=== PATIENT | male | born 1955 | race Caucasian/White ===

== ENCOUNTER → 2024-08-17 08:34 | Outpatient (CLI) | payer MEDICARE, OTHER, SELFPAY ==
[2024-08-17 09:19] LABS: Add Manual Diff / Slide Review NO; Basophils Absolute Auto 0 /uL (0-100); Basophils Percent Auto 0.3 % (0-2); Eosinophils Absolute Auto 0 /uL (0-450); Eosinophils Percent Auto 1.1 % (2-4); Hematocrit 43.5 % (41-53); Hemoglobin 15.6 g/dL (13.5-17.5); Lymphocytes Absolute Auto 1600 /uL (1100-4500); Lymphocytes Percent Auto 40.1 % (25-40); Mean Corpuscular HGB Conc 35.8 % (30-36); Mean Corpuscular Volume 94.9 fL (80-100); Monocytes Absolute Auto 400 /uL (0-900); Monocytes Percent Auto 9.3 % (3-14); Neutrophils Absolute Auto 2000 /uL (1500-7000); Neutrophils Percent Auto 49.2 % (50-75); Platelet Count 140 X10^3/uL (150-400); Red Blood Cell Count 4.59 X10^6/uL (4.5-5.9); Red Cell Distribution Width 12.7 % (11.6-14.8); White Blood Cell Count 4.1 X10^3/uL (4.5-11.0)
[2024-08-17 09:34] LABS: Albumin 4.2 g/dL (3.5-5.0); BUN Creatinine Ratio 38.7 (6-22); Blood Urea Nitrogen 24 mg/dL (9-20); Calcium 9.3 mg/dL (8.4-10.2); Carbon Dioxide 24 mmol/L (22-32); Chloride 108 mmol/L (98-107); Estimated Glomerular Filt Rate > 60 mL/min (>60); Glucose 99 mg/dL (70-99); HEMOLYSIS < 15 (0-50); Potassium 4.5 mmol/L (3.4-5.1); Sodium 140 mmol/L (137-145)
[2024-08-17 09:52] LABS: Vitamin D 25 Hydroxy (D3) 32.7 ng/mL (30.0-100.0)
== END ==
PROVIDERS: PCP Family Medicine; Referring Provider Orthopaedic Surgery Adult Reconstructive Orthopaedic Surgery; Visit Provider Orthopaedic Surgery Adult Reconstructive Orthopaedic Surgery
DX: Z01.818 Encounter for other preprocedural examination (principal); E11.9 Type 2 diabetes mellitus without complications; E55.9 Vitamin D deficiency, unspecified
CPT/HCPCS: 36415; 80048; 82040; 82306; 83036; 84134; 85025

== ENCOUNTER → 2024-11-19 13:12 | Outpatient (CLI) | payer MEDICARE, OTHER, SELFPAY ==
[2024-10-24 10:01] VITALS: BMI 24.0
[2024-11-19 13:52] LABS: Add Manual Diff / Slide Review NO; Hematocrit 43.9 % (41-53); Hemoglobin 15.5 g/dL (13.5-17.5); Lymphocytes Absolute Auto 1900 /uL (1100-4500); Mean Corpuscular HGB Conc 35.3 % (30-36); Mean Corpuscular Hemoglobin 33.0 PG (26-34); Mean Corpuscular Volume 93.3 fL (80-100); Platelet Count 171 X10^3/uL (150-400)
[2024-11-19 13:57] LABS: Hemoglobin A1C% w Est Avg Glu 5.0 % (4.0-6.0)
[2024-11-19 14:13] LABS: Albumin 4.8 g/dL (3.5-5.0); Blood Urea Nitrogen 17 mg/dL (9-20); Calcium 9.8 mg/dL (8.4-10.2); Carbon Dioxide 25 mmol/L (22-32); Chloride 105 mmol/L (98-107); Estimated Glomerular Filt Rate > 60 mL/min (>60); Glucose 81 mg/dL (70-99); HEMOLYSIS < 15 (0-50); Potassium 4.7 mmol/L (3.4-5.1); Sodium 139 mmol/L (137-145)
[2024-11-19 14:21] LABS: Prealbumin 38.2 mg/dL (17.6-36.0)
[2024-11-19 14:24] LABS: Vitamin D 25 Hydroxy (D3) 48.2 ng/mL (30.0-100.0)
== END ==
PROVIDERS: PCP Family Medicine; Referring Provider Family Medicine; Visit Provider Orthopaedic Surgery Adult Reconstructive Orthopaedic Surgery
DX: R73.09 Other abnormal glucose (principal); E55.9 Vitamin D deficiency, unspecified; M25.562 Pain in left knee; M17.12 Unilateral primary osteoarthritis, left knee; Z96.651 Presence of right artificial knee joint
CPT/HCPCS: 36415; 80048; 82040; 82306; 83036; 84134; 85025; 99214

== ENCOUNTER 2025-02-10 08:43 | Day surgery (SDC) | payer MEDICARE, OTHER, SELFPAY ==
[2024-10-24 10:01] VITALS: BMI 24.0
[2025-02-04 14:10] VITALS: BMI 23.8
[2025-02-10] VITALS (7 sets, daily range): BP systolic 136–148; BP diastolic 66–91; PULSE 74–102; RESP 12–21; TEMP 35.6–36.9; O2SAT 95–100; BMI 24.0
--- NOTE | 2025-02-10 06:00 | DI.RAD.S_ITS ---
PROCEDURE: XR KNEE LT 1TO2V INDICATIONS: TKA TECHNIQUE: 2 view(s) of the knee acquired. COMPARISON: [facility], CR, XR KNEE RT 1TO2V, 10/11/2024, 13:41. FINDINGS: Bones: Patient is status post knee joint arthroplasty. Hardware components are in expected positions. Visualized bony structures are intact. Soft tissues: Overlying postoperative changes are noted. IMPRESSION: Expected post-operative appearance of a knee arthroplasty. Approved by: Nancy Hedrick M.D.,Ph.D. on 02/10/2025 at 16:00
--- NOTE | 2025-02-10 09:09 | EKG_ITS ---
[address] [address] Test Date: 2025-02-10 Pat Name: Parviz Robertson III Department: Room: Gender: Male Manufacturing Quality Inspector: Francesca SKY : 1955 Requested By: Order Number: [id number] Reading MD: Zacarias Richey MD Measurements Intervals [place] Rate: 68 P: 52 IN: 182 QRS: 58 QRSD: 96 T: 34 QT: 420 QTc: 446 Interpretive Statements Normal sinus rhythm Electronically Signed On 02-11-2025 7:40:34 PST by Zacarias Richey MD
[2025-02-10] MEDS: LACTATED RINGERS 1,000 ML 42 ML IV ×2 (09:25→13:41)
[2025-02-10] MEDS: MELOXICAM 7.5 MG TABLET 15 MG PO (09:26)
[2025-02-10] MEDS: ACETAMINOPHEN 325 MG TABLET 975 MG PO (09:27)
--- NOTE | 2025-02-10 09:59 | PM.PREOP ---
Pre-operative Note Interval Note History & Physical reviewed/Exam performed by Physician: Yes Changes to H&P: No
--- NOTE | 2025-02-10 10:48 | SUR.OPER ---
Supine on padded OR bed. Pillow under head, arms secured on padded armboards <90 degree abduction. Safety belt across torso. Non-operative leg secured with tape over blanket over lower leg. Operative leg secured in DeMayo/Moo/Nathe positioner. Foam padded brace at thigh of operative leg.
[2025-02-10] MEDS: TRANEXAMIC ACID 1,000 MG in SODIUM CHLORIDE 0.9% 100 ML 200 MG IV ×2 (12:15→13:43)
[2025-02-10] MEDS: KETOROLAC 30 MG/ML VIAL 15 MG INJ (12:44)
--- NOTE | 2025-02-10 13:37 | SUR.OPER ---
IRRIGATION: NORMAL SALINE, POVIDONE IODINE, HYDROGEN PEROXIDE
[2025-02-10] MEDS: LACTATED RINGERS 1,000 ML 100 ML IV (14:00)
--- NOTE | 2025-02-10 14:02 | P.OP_ITS ---
Operative Date/Time/Diagnoses Date of procedure: 02/10/25 Time of procedure: 12:30 Pre-op diagnosis: Left knee osteoarthritis Post-op diagnosis: same Procedure & Clinicians Procedure: Left total knee arthroplasty Same procedure(s) as scheduled: Yes Surgeon: Artis Webber Assisted?: Yes Automobile Detailer: Mandy Lomas Anesthesia Type: Spinal, Sedation, Peripheral nerve block and Local Operative Notes Findings: Severe arthritis Closure Type: primary Applied: implant(s) Estimated Blood Loss (mL): 50 Tourniquet time (min): 48 Procedure in detail: Left Gap-Balanced Fran Persona Medial-Congruent Primary Total Knee Arthroplasty Implants: * Size 11 Cruciate Retaining Femoral Component * Size E Tibial Component * Size 10 Medial Congruent Polyethylene Insert * Unresurfaced Patella Procedure Summary: This 69-year-old male patient had previously undergone a contralateral total knee arthroplasty with me earlier this year. Review of his long leg standing radiograph indicated that with a 5 degree cut on his distal femur and a varus cut on his proximal tibia his standing joint line and hip knee angle had been recreated so the same angles were used for today's procedure. Analysis of the distal femoral resection indicated that with a 5 degree cut both the medial and lateral side had an equal resection and the extension gap balanced without the need for soft tissue releases. Bone quality was excellent Procedure in Detail: This patient was seen preoperatively and evaluated for knee pain which was refractory to numerous nonoperative treatment modalities. Their pain correlated with radiographic changes demonstrating significant degeneration in the knee joint. The risks and benefits of continued nonoperative management versus operative management were discussed at length and all of the patient?s questions were answered. Additional educational materials providing further details beyond our discussion in clinic were provided via a publicly available patient education video which included the incidence of medical complications associated with total knee arthroplasty, reasons for revision following total knee arthroplasty, and patient satisfaction rates following total knee arthroplasty. With this understanding of the risks inherent to the procedure, the patient elected to move forward with operative management. Following preoperative optimization, the patient was scheduled for surgery. The patient was met in the preoperative holding area the day of the procedure and all questions were answered. The patient?s nares were swabbed in order to decolonize them from MRSA. Informed consent was signed and the left limb was marked with indelible ink.? The patient was brought back to the operating room where anesthesia was induced. The patient was transferred to the operating table and all bony prominences were padded. The operative site was prepped and draped in the usual sterile fashion. A second prep stick was utilized following drape placement. The incision was marked corresponding to the medial aspect of the tibial tubercle and the patella. Ioban was wrapped circumferentially around the knee. Prior to incision, tranexamic acid and cefazolin were administered. Templating images were displayed. A timeout procedure was performed verifying the patient?s identity, medical comorbidities, allergies, relevant medications, anesthesia type and the surgical plan. All present were in agreement. The assistance of a physician surgeon's assistant was required for positioning, room setup, soft tissue retraction and wound closure. Without this assistance, the procedure would have been significantly more challenging and time consuming.?? The tourniquet was inflated prior to incision. I made an anterior incision over the knee, dissected through the subcutaneous tissues and identified the lateral border of the VMO. Medial and lateral soft tissue flaps were developed. A mid- vastus arthrotomy was performed ensuring that adequate capsular tissue would remain for closure at the conclusion of the procedure. The knee was brought into extension and the medial soft tissues were released off the joint line of the tibia. Tissue overlying the distal anterior femur was released to allow for later assessment for anterior notching but left in place. A portion of the retropatellar fat pad was excised while protecting the patellar tendon. The patella was everted. The patella was not resurfaced. Osteophytes were excised and a lateral facetectomy was performed. The patella was released from its everted position.?? I flexed the knee to 90 degrees and placed retractors to allow access to the notch. An opening reamer was used to gain access to the femoral canal and an intramedullary mehrdad was introduced into the canal. Diaphyseal fit was obtained in order to plan a distal femoral resection at 5 degrees relative to the anatomic axis. A +0 resection was planned and assessed using an miesha wing. I then made the cut using a sagittal saw. This provided additional access to the femoral notch. The ACL and PCL were excised. Retractors were placed on the lateral and medial tibia. I hyperflexed the knee while externally rotating it to sublux the tibia anteriorly. I placed a Brock retractor posteriorly and used this to provide additional anterior subluxation. The remainder of the PCL root was released. An extramedullary guide was positioned for a resection in varus. A +4 resection off the medial tibia was planned and the tibial cutting jig was pinned in place. I evaluated the depth, varus-valgus alignment and slope of the planned tibial resection prior to making the cut. I cut the tibia with a sagittal saw while using retractors to protect the MCL, patellar tendon, and posterolateral structures.? The knee was repositioned in extension and the Fuzion soft tissue balancing gauge was introduced. This demonstrated that there was equal tension in the medial and lateral compartments of the knee with the knee in full extension and no additional soft tissue releases were necessary. When 50 pounds of force was applied to the Fuzion device, the extension gap opened to 10 mm. I moved the knee into 90 degrees of flexion, and the Fuzion device was recalibrated by removing a 9 mm juan j to allow assessment of the flexion gap. The Fuzion block was placed perpendicular to the resected surface of the tibia and the resected surface of the distal femur. Fifty pounds of traction was applied to match the tension of the extension gap. This externally rotated the femur to 3 degrees. Pins were placed in the 10 mm holes. Appropriate sizing was determined and a 4-in-1 block was placed. This was double checked using the Fuzion device to ensure that it would open to an equal distance as the extension gap when the same amount of force was applied. The Fuzion block was also used to assess flexion gap symmetry. An miesha wing was used to ensure there would be no anterior notching. Retractors were placed to protect the soft tissues during resection. Captured cuts were performed with a sagittal saw for the anterior and posterior femur as well as the corresponding chamfers.?A laminar senior administrative support and retractors were used to expose the posterior knee and the menisci and posterior osteophytes were removed. Trial components were placed and the construct was assessed. Range of motion was assessed by ensuring the knee could achieve full extension and assessing maximum passive knee flexion by elevating the femur and allowing the heel to passively fall towards the buttock. Gap symmetry was assessed by stressing the medial and lateral compartments in both extension and flexion. Laxity was assessed in both extension and flexion and the polyethylene trial was adjusted with shims as necessary. Patellar tracking was assessed with knee flexion. Once satisfied with the construct, I moved forward with implant insertion. Lug holes were drilled in the femur and the tibia was prepped ensuring appropriate sizing and rotation relative to the tibial tubercle.?? The bony ends were irrigated. A portion of the anterior chamfer cut was utilized as a to plug the hole from the intramedullary mehdrad in the femur. I impacted the tibial component into place. The tibia was reduced underneath the femur. I placed the femoral component. I brought the knee into extension and manually pressurized the construct by pushing on the heel. The knee was bathed in a dilute mixture of betadine and peroxide. A mixture of Ropivacaine, Epinephrine and Toradol was infiltrated throughout the soft tissues into structures including the VMO, patellar tendon, quadriceps tendon, MCL and femoral perioste um. The knee was copiously irrigated with pulse lavage. The knee was again trialed. Range of motion was assessed by ensuring the knee could achieve full extension and assessing maximum passive knee flexion by elevating the femur and allowing the heel to passively fall towards the buttock. Gap symmetry was assessed by stressing the medial and lateral compartments in both extension and flexion. Laxity was assessed in both extension and flexion and the polyethylene trial was adjusted with shims as necessary. Patellar tracking was assessed with knee flexion. The tourniquet was let down and the polyethylene trial was removed. I inspected the knee inspected for any residual bleeding. Once hemostasis was achieved I inserted the final polyethylene and ensured appropriate engagement of the dovetail locking mechanism.?? The arthrotomy was closed with non-absorbable interrupted suture ensuring that this extended to the top of the arthrotomy. This was backed up with running barbed suture throughout the arthrotomy. The skin was closed with 2-0 and 3-0 sutures. Surgical glue was applied and a soft dressing was placed.?The sponge, instrument and needle counts were reported as being correct at the end of the case. The patient was transferred from the operating table back to a stretcher. The patient emerged from anesthesia without difficulty and was taken to the PACU in a stable condition.? Plan for aftercare: * Weightbearing as tolerated * Aspirin 81 twice per day for DVT prophylaxis * Multimodal pain regimen with no IV opioids ordered * Anticipate discharge home tomorrow. Patient has an 11:00 a.m. [place] that we will try to aid him in catching * Follow up at [facility] in 2 weeks for wound check Complications: none Post-operative Condition: stable Disposition: observation
[2025-02-10] MEDS: ACETAMINOPHEN 325 MG TABLET 650 MG PO ×2 (17:14→20:58)
--- NOTE | 2025-02-10 18:57 | PT.IIE ---
Current Diagnoses Unilateral primary osteoarthritis, left knee (02/10/25) Surgery Performed Operation Date: 02/10/25 11:15 Actual Procedures p Total Knee Arthroplasty(Left) - Artis Webber MD Surgical History (Last Updated 02/04/25 @ 14:12 by Afua Ayala RN) History of appendectomy Hx of cholecystectomy Hx of hernia repair Status post total knee replacement, right (10/11/24) Medical History (Last Updated 11/19/24 @ 14:15 by Artis Webber MD) HLD (hyperlipidemia) HTN (hypertension) PAF (paroxysmal atrial fibrillation) Palpitations Pancreatitis Primary osteoarthritis of both knees Primary osteoarthritis of left knee Sciatica Physical Therapy Inpatient Evaluation/Re-Eval M1 PT IP Prior Functional Status Start: 02/10/25 18:46 Freq: Status: Active Protocol: Document 02/10/25 18:46 NW (Rec: 02/10/25 18:57 NW [id number]) Medical Review Prior Functional Status Communication I Mobility and Gait I with occasional use of walking sticks/SPC secondary to R TKA in September. Activities of Daily I Living and IADL's Social History Household Members spouse Living Arrangements House Number of Floors ( Two Floors Floors) Number of Stairs To 2 steps to enter, plans to live on first floor with Enter/Railing? make shift bedroom and 1/2 bath. Has 16 steps to reach full bath upstairs. Pt had R TKA in September and did the same for a month. Home Environment Standard Height Toilet,Walk in Shower Home Equipment Front Wheel Walker,Straight Cane,Raised Toilet Seat Without Armrests,Grab Bars In Shower Employment Status Retired Additional Social Has additional family on the [place] to assist as needed History Comment . M2 PT-IP Current Condition Start: 02/10/25 18:46 Freq: Status: Active Protocol: Document 02/10/25 18:46 NW (Rec: 02/10/25 18:57 NW [id number]) Physical Therapy Current Condition Current Condition Evaluation Date 02/10/25 Treatment Diagnosis L TKA Onset Date 02/10/25 M3 PT-IP Subjective Start: 02/10/25 18:46 Freq: Status: Active Protocol: Document 02/10/25 18:46 NW (Rec: 02/10/25 18:57 NW [id number]) Subjective Physical Therapy Visit Type Type Initial Evaluation Visit Start Time 18:10 Visit Stop Time 18:35 Number of MERCHANDISE HANDLER Visits 0 Physical Therapy Visit Comments Patient Comments Pt is found supine in bed after finishing dinner. Spouse is present upon entry. Patient Goals To go home early in the morning. M4 PT-IP Mobility and Gait Start: 02/10/25 18:46 Freq: Status: Active Protocol: Document 02/10/25 18:46 NW (Rec: 02/10/25 18:57 NW [id number]) PT-Bed Mobility Assessment Supine to Sit Supine to Sit Independent Sit to Supine Sit to Supine Independent Scooting Scooting to Edge of Independent Bed PT-Transfer Assessment Sit to and From Stand Sit to and from Contact Guard Assistance,1 Person Assistance,Use of Stand Upper Extremities Equipment Transfer Assistive Gait Belt,Front Wheeled Walker Device Transfers Transfer Destination Bed,Wheelchair Transfer Technique Stand Step Pivot Transfer Ability Level of Assist Standby Assistance,1 Person Assistance,Use of Upper Extremities Comments Mobility Comments Pt self selects decrease WBing through LLE and utilizes UE to assist with transfer. Good carryover from previous R TKA in September on AD management and UE placement. Gait Assessment Gait Gait Assistance Standby Assistance Required: Distance (Feet) 50 Able to Maintain Yes Weight Bearing Status During Gait Assistive Devices Assistive Device Gait Belt,Front Wheeled Walker Gait Deviations General Gait Pattern Antalgic,Decreased Stride Length,Step-to Gait Factors Limiting Gait Function Factors Limiting Pain Gait Function Comments Gait Comments Cues occasionally to keep FWW on the ground. Performs over two irregular bouts with a step to gait pattern with good use of UE to decrease load through LLE secondary to pain. Adequate velocity with step to gait pattern. Stair Climbing Assessment Evaluation Level of Assist On Contact Guard Assistance,1 Person Assistance Stairs Devices Stair Climbing Left Railing Assistive Devices Technique/Endurance Stair Climbing Ascend and Descend Direction Stair Climbing Step Over Step Technique Number of Steps 3 Climbed Query Text: Stair Climbing Set # 1 Repetitions (reps) Comments Stair Climbing Pt is able to perform with unilateral railing for UE Comments support as pt does not have railings at home, but has a wall to utilize for stability. Good eccentric control and power production. PT-Balance Assessment Sitting Balance and Reactions Static Sitting Normal Balance Ability Dynamic Sitting Good Balance Ability Standing Balance and Reactions Static Standing Good Balance Ability Dynamic Standing Fair Balance Ability Device Used FWW M5 PT-IP Objective Assessments Start: 02/10/25 18:46 Freq: Status: Active Protocol: Document 02/10/25 18:46 NW (Rec: 02/10/25 18:57 NW [id number]) Orientation Orientation/Cognition Level of Alertness Alert Orientation Name,Age,Birthday,Month,Date,Year,Day of Week,Place, Situation Safety Awareness Understands Safety Issues Memory Description No Deficits Noted Gross Range of Motion Upper Extremity ROM Assessment Within Functional Limits Lower Extremity ROM Assessment Left Impaired Impairments secondary post op Strength Upper Extremity Strength Assessment Within Functional Limits Lower Extremity Strength Assessment Left Impaired Hip DNT Knee DNT Coordination Assessment Gross Coordination Gross Coordination WNL Sensation Assessment Sensation Gross Sensation WNL M6 PT-IP Treatment Start: 02/10/25 18:46 Freq: Status: Active Protocol: Document 02/10/25 18:46 NW (Rec: 02/10/25 18:57 NW [id number]) Physical Therapy Treatment Exercises Exercises Ankle Pumps,Gluteal Sets,Quad Sets,Heel Slides,Straight Leg Raises,Short Arc Quads,Passive Knee Extension Hang Education Education Provided Precautions,Weight Bearing Status,Post-Op Packet,Safety Other Treatments Other Treatment AD management and stair navigation. Performed M7 PT-IP Assessment and Plan Start: 02/10/25 18:46 Freq: Status: Active Protocol: Document 02/10/25 18:46 NW (Rec: 02/10/25 18:57 NW [id number]) PT Summary Assessment and Plan Potential Rehabilitation Excellent Potential Status of Condition Stable at Evaluation Summary Impairments Pain,ROM,Strength,Balance,Transfers,Gait,Activity Tolerance Progress Towards Progressing Toward Goals Goals Goals Transfer Goal Independent Gait Goal Standby Assistance Gait Distance 100 Other Goals Pt will navigate 2 steps with reduced UE support to mimic getting in and out of the home with no railing support (has a wall on L). Days to Meet Goals 1 Frequency of Treatment Frequency Of Once a Day Treatment Treatment Plan Physical Therapy Transfer Training,Gait Training,Therapeutic Exercise, Treatment Plan Balance Retraining,Post Op Education,Discharge Planning ,Neuromuscular Re-ed Other Progress stairs and ambulation distance Recommendations and Next Treatment Focus Weight Bearing Status Weight Bearing Weight Bear as Tolerated Status Recommendations To Nursing Amount of Assist 1 Person Assist Needed Discharge Recommendations PT Discharge Home with Assistance,Outpatient PT Recommendations Transportation Needs Private Vehicle at Discharge - PT assist 1
[2025-02-10] MEDS: TAMSULOSIN 0.4 MG CAPSULE PO (20:57)
[2025-02-10] MEDS: SENNOSIDES 8.6 MG TABLET 17.2 MG PO (20:58)
[2025-02-10] MEDS: DOCUSATE 100 MG CAPSULE PO (20:58)
[2025-02-11] MEDS: ACETAMINOPHEN 325 MG TABLET 650 MG PO ×2 (02:36→09:45)
[2025-02-11 06:56] VITALS: BP 137/74; PULSE 93; RESP 18; TEMP 36.4; O2SAT 95
--- NOTE | 2025-02-11 07:09 | P.DS_ITS ---
History of Present Illness History of Present Illness Date Patient Seen: 02/11/25 Chief complaint: Left Total Knee Arthroplasty Narrative: Attending: Dr. Artis Webber Orthopedic Procedures: ?Left Total Knee Arthroplasty 69 year old male with a past medical history of hypertension and paroxysmal atrial fibrillation presented to [facility] on 02/10/2025 for planned left total knee arthroplasty by Dr. Webber. This elective procedure was indicated by chronic left knee arthritis that failed to improve sufficiently with conservative treatment. On the date of surgery there were no changes to the patient?s medical history, medications or allergies. Consent had been obtained and the patient agreed to proceed with planned surgery. Discharge Providers Provider Discharge Date: 02/11/25 Primary care physician: Luis Wall MD Consults: 02/10/25 15:37 Consult to Physical Therapy Evaluate & Treat Comment: Physician Instructions: WBAT Discharge provider: YVONNE Rogers Dr Summary Hospital Course Hospital Course: On 02/10/2025 the patient was brought to the operating room for planned left total knee arthroplasty by Dr Webber. There were no known intraoperative complications. The patient was transferred to the postoperative recovery area and monitored appropriately. Later the patient was transferred to the acute care unit [facility] for monitoring overnight and physical therapy. There were no acute events overnight. On postoperative day one, the patient's vital signs were stable, and they were making urine spontaneously after 0.4 mg of tamsulosin given his history of urinary retention post operatively. The patient was seen by physical therapy on post operative day 0 and tolerated rehabilitation without concern. PT recommended discharge home with assistance and out patient physical therapy. Pain was well-controlled on oral analgesics including acetaminophen and oxycodone. The patient denied any numbness or tingling in the operative leg. The patient agreed with preoperative plan to discharge home on postoperative day one. They have no acute concerns or questions. Vital signs were repeated during my evaluation with heart rate 93 and oxygen saturation 95% on room air. Respiratory rate 18. Blood pressure 137/74. ROS today: no chest pain, dyspnea, fever, chills, nausea or emesis Exam Vital Signs (past 8 hours): - 02/11/25 06:56 Temperature 97.5 F L Pulse Rate 93 H Respiratory Rate 18 Blood Pressure 137/74 Pulse Oximetry 95 Oxygen Flow Rate 0 Oxygen Delivery Method Room Air Oxygen Flow Rate 0 Narrative Exam Narrative: Physical Exam: Well developed, well-nourished 69 year old male, resting comfortably Normal respiratory effort on room air without accessory muscle use Dressing is clean, dry and intact to the left knee without drainage. No hematoma.? 0.25 cm spot of sanguinous drainage about mid portion of the aquacel dressing. Stevie wrap and webril in place to left knee. Flexion and extension of the first hallux and ankle in tact. Knee extension intact. Calves are soft and non-tender to operative extremity, SCDs in place Palpable dorsalis pedis pulse. 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 Webber at [facility] on 02/10/2025. The patient is recovering well with appropriate pain control on oral analgesics and stable vital signs. The patient is comfortable with planned discharge home today on post operative day one. Plan: - Weight bearing as tolerated to operative extremity with front wheeled walker - Antibiotics: 2 postoperative doses of Ancef - DVT prophylaxis: 81 mg of aspirin by mouth twice daily - Pain control: multimodal analgesia with acetaminophen, ibuprofen, tramadol and oxycodone. Minimize use of opioid medication. Ice to surgical site. - Bowel regimen: docusate sodium twice daily for constipation - Physical therapy evaluation today prior to discharge - Follow up: 2 week follow up at [facility] - Discharge medications: none. Post operative medications were prescribed prior to surgery.? His medications were sent to mail order pharmacy.? A 2 day prescription for tramadol was sent to [place] pharmacy on the day of surgery. - Disposition: home today All patient questions were answered, and they verbalized agreement with the above plan. Call [facility] or transformation analyst provider with any questions or concerns. Discharge Plan Discharge Plan Patient Disposition: Home Provider Discharge Comment: SURGICAL PROCEDURE: Left Total Knee Arthroplasty SURGEON: Dr. Webber at [facility] DATE: 02/10/25 ACTIVITY INSTRUCTIONS - You are weight bearing as tolerated to the left lower extremity with a front wheeled walker at all times. We encourage active movement of the toes and ankle every hour while awake to prevent stiffness. - Do not drive while taking narcotic medications and recovering from your surgery. - We want you to follow a quiet knee protocol for the first two weeks after surgery. This means: Do not stand for more than 20 minutes at a time Ambulate less than 1,000 steps per day Bend the knee as far as you can with your own muscles and straighten it all the way out by resting your heel on a flat surface and letting your knee hang down Avoid anyone pushing your knee to bend it or straighten it - After two weeks we will want you to get more aggressive in your work with physical therapy, but we need to let your body heal first DRESSING CARE - You have an aquacell dressing on top of your incision. This is a waterproof dressing and so you may shower with the dressing so long as the dressing remains clean and dry to the surgical site. Leave the dressing in place until your follow up in the orthopedic clinic. If the dressing becomes saturated or is disrupted call our office for further guidance. - Your dressing is covered with a soft cotton dressing and stevie wrap for compression. You may remove these dressings when you return home but should leave the waterproof dressing in place. POST-OPERATIVE INSTRUCTIONS - If you notice fever, chills, night sweats, redness, excessive drainage or bleeding, a sharp increase in pain that persists after taking pain medication, pain in your calf muscles, chest pain or trouble breathing please unwrap the dressing and investigate. Then call the office with findings for further guidance. If it is after regular clinic hours, please seek care in the emergency department. - In the rare case of any severe chest pain and trouble breathing, seek immediate care, do not delay for a call to the clinic. - Use ice to the affected extremity for 15-30 minutes increments as much as possible. Use your ice machine as discussed in your pre-operative visit. - Keep extremity elevated to the level of the heart to reduce swelling. You can use ice on top of the dressing to reduce pain and swelling of the extremity. - You should consume a low sodium diet after surgery to limit swelling. You can gradually resume your normal diet if you have no nausea or vomiting - Physical therapy should begin about 7-10 days after surgery. Your first evaluation should already be scheduled. Call our office if you cannot schedule your therapy in the expected time frame. - Your follow up is already scheduled for 2 weeks after your surgery at the Orthopedic clinic. - You should have no dental procedures for 6 months following your total joint replacement. - Please refer to Dr. Webber?s educational videos on [employer] for a reference on your post operative care. [email or web address] - Call [facility] at [phone] with any questions or concerns. Given the upcoming holidays please call the orthopedic office to be connected with the transformation analyst provider for any concerns or questions. Portal messages may not be monitored if the provider is off for the holiday. Thank you for your consideration. MEDICATIONS - Please refer to the ?Orthopedic Medication Instructions? sheet provided at your pre-operative visit. Written instructions are provided below as a reminder. - Take two pills of 500 mg Tylenol (acetaminophen) every 8 hours regardless of pain in a scheduled manner. Do not exceed 3000 mg of Tylenol (from ALL sources, including over the counter combination products) in a 24-hour period due to risk of liver injury. - Take one pill of oral meloxicam daily. This is NSAID (anti-inflammatory) medication to reduce swelling and pain. - Take one pill of 50 mg tramadol by mouth every 6 hours as needed for break through pain after taking your regular Tylenol and anti-inflammatory. - Oxycodone and Tramadol are opioids, which means they are similar to morphine, heroin or fentanyl. Our goal is for you to take as little of this as possible because the side effects from it can be very severe. If you are able to get through your recovery process taking 10 pills or less, please share your story with other patients by logging onto [email or web address] and sharing what strategies you used to avoid these dangerous medications. You can also read other patients? stories on that website to get strategies that go above and beyond what we have discussed to help you manage this pain while avoiding opioids. - Take 200 mg of Colace by mouth every 12 hours for constipation. Narcotic medications such as oxycodone and tramadol as well as anesthesia may increase your risk of constipation after surgery. - Take 4 mg of Zofran by mouth every 6 hours as needed for uncontrolled nausea or vomiting. If you have persistent nausea and vomiting call our office or seek care in the emergency department. - Take one pill of 81 mg of aspirin two times daily 12 hours apart for 6 weeks for blood clot prevention. Take this medication regardless of pain. - Take three pills of 650 mg tranexamic acid once daily for 3 days following surgery. This is to reduce bleeding and swelling in your knee. - Take a proton pump inhibitor such as Pantoprazole if you have a history of acid reflux or are noticing stomach irritation. NSAIDs and aspirin can both cause stomach irritation and that medication can help avoid stomach issues. - If you stopped taking a ?biologic? medication that you normally take for an issue such as rheumatoid arthritis or psoriasis prior to surgery, do not restart it until we have seen you back in clinic and confirmed that your wound is h ealed. - Resume all of your normal home medications tomorrow morning unless specified otherwise by your surgeon. Discharge orders & Medications Discharge Orders: Discharge (Order); Ordered 02/11/25 Ordered By: Mandy Lomas Prescriptions: New tramadol 50 mg tablet 50 mg PO Q6H PRN (Reason: pain) Qty: 10 0RF Continued cholecalciferol (vitamin D3) 50 mcg (2,000 unit) capsule 100 mcg PO DAILY Qty: 60 3RF Rx Instructions: Take 2 caps by mouth daily. ketoconazole 2 % cream 1 applic topical DAILY acetaminophen 325 mg Tablet 650 mg PO Q6H Qty: 90 0RF amlodipine 5 mg tablet 7.5 mg PO DAILY pantoprazole 40 mg tablet,delayed release (DR/EC) 40 mg PO DAILY Qty: 30 0RF meloxicam 15 mg tablet 15 mg PO DAILY PRN (Reason: Post op - pain) Qty: 30 1RF tramadol 50 mg tablet 50 mg PO Q6H PRN (Reason: pain) Qty: 25 0RF Follow up/Referrals: Luis Wall MD [Primary Care Provider, [facility]] Visit Report/Discharge Packet Instructions: DI for Knee Replacement, DI for Prescription Opioid Use Stand Alone Forms: Patient Portal/API, Surgery Discharge Print Language: [place] Discharge Data Primary Care Provider: Luis Wall Attending Provider: Artis Webber PROFEE Charge Codes Discharge inpatient/observation: [id number]
[2025-02-11 08:15] VITALS: BP 127/74; PULSE 85; RESP 18; TEMP 36.2; O2SAT 98
[2025-02-11] MEDS: DOCUSATE 100 MG CAPSULE PO (08:19)
[2025-02-11] MEDS: PANTOPRAZOLE DR 40 MG TABLET PO (08:19)
[2025-02-11] MEDS: MELOXICAM 7.5 MG TABLET 15 MG PO (08:25)
--- NOTE | 2025-02-11 08:32 | CM.DANOTE ---
DCP Assessment Note: Pt is a 69yo male, resident of [facility], is admitted s/p L TKA. Pt lives in a house with his , Melvi. Pt's Primary Care Provider is Dr. Luis Wall and insurance is Medicare. Reviewed chart and discussed with multidisciplinary team pt's medical status and initial discharge needs. Per Ortho team, pt medically cleared to discharge home today with outpatient follow up in their clinic. Per PT evaluation, pt cleared to dc home with spouse and outpatient PT. No dc needs identified in chart review to include Pre-Anesthesia assessment, Provider and Nurse notes. Plan: Anticipating discharge home with spouse to transport, discharge orders are placed. CM team will follow closely for coordination of discharge plans. PRICILLA Russell Discharge Planning/Care Management CM Discharge Assessment Start: 02/10/25 14:22 Freq: Status: Active Protocol: Document 02/11/25 08:30 MW (Rec: 02/11/25 08:32 MW [id number]) Discharge Planning Assessment Assigned Discharge JEFFERSON Guillen Guard Sergeant Provider Dr. Luis Wall Insurance Medicare DPOA/Assigned Melvi [place], Spouse Designee Name Contact Information [phone] Advance Directives? No History Provided By Patient,Medical Record Has Patient been No admitted in last 30 days? Prior Living House Arrangements Household Members spouse Type of Drives own vehicle transporation used prior to admit Independent with ADL Yes 's Is patient alert and Yes oriented? Patient/Family OP PT Therapy Preference Discharge Plan Home Transportation Spouse Arrangement Referrals Initiated None needed Review Status In Process Please Provide Date 02/11/25 Initial DC Assessment Was Performed Next Review Type Continued Stay Review
--- NOTE | 2025-02-11 09:32 | PT.IPTN ---
Current Diagnoses Unilateral primary osteoarthritis, left knee (02/10/25) Surgery Performed Operation Date: 02/10/25 11:15 Actual Procedures p Total Knee Arthroplasty(Left) - Artis Webber MD Physical Therapy Treatment Note M2 PT-IP Current Condition Start: 02/10/25 18:46 Freq: Status: Active Protocol: Document 02/11/25 09:12 SP (Rec: 02/11/25 09:54 lillie Bain) Physical Therapy Current Condition Current Condition Evaluation Date 02/10/25 Treatment Diagnosis L TKA Onset Date 02/10/25 M3 PT-IP Subjective Start: 02/10/25 18:46 Freq: Status: Active Protocol: Document 02/11/25 09:12 SP (Rec: 02/11/25 09:54 lillie Bain) Subjective Physical Therapy Visit Type Type Treatment Note Visit Start Time 09:12 Visit Stop Time 09:32 Notes 20 min Number of [employer] Visits 1 Physical Therapy Visit Comments Patient Comments Pt agreeable to working with [employer]. Patient Goals go home with to assist as needed, set up for outpatient in 2 weeks. Therapy Pain Assessment Pain When Pain Assessed During Mobility Pain Present Pain Present Pain Reported Location Right Knee Intensity 4 Scale Used Numeric (0 - 10) Description With Movement Pain Management Timing of Activity with Medications Techniques M4 PT-IP Mobility and Gait Start: 02/10/25 18:46 Freq: Status: Active Protocol: Document 02/11/25 09:12 SP (Rec: 02/11/25 09:54 lillie Bain) PT-Bed Mobility Assessment Supine to Sit Supine to Sit Independent Sit to Supine Sit to Supine Independent Scooting Scooting to Edge of Independent Bed PT-Transfer Assessment Sit to and From Stand Sit to and from Independent,Standby Assistance,Use of Upper Extremities Stand Equipment Transfer Assistive Gait Belt,Front Wheeled Walker Device Transfers Transfer Destination Bed Transfer Technique pt ambulated with FWW Transfer Ability Level of Assist Independent,Standby Assistance,Use of Upper Extremities Comments Mobility Comments [employer] instructed L knee post-op exercises: AP, glut and quad sets, heel slides AROM/AAROM with strap on foot allowed up to 90deg tolerated, approx 75 deg. bed mob I , sit EOB L knee flexion/ext AROM. STS and gait further distance into hallway progressed to stairs and back, completed 1 set 3 stairs with SPC/HR. Pt returned to room and reclined back into bed when completed. Had call light and all needs in reach. Gait Assessment Gait Gait Assistance Independent,Standby Assistance Required: Distance (Feet) 150 Able to Maintain Yes Weight Bearing Status During Gait Assistive Devices Assistive Device Gait Belt,Front Wheeled Walker Gait Deviations General Gait Pattern Antalgic,Decreased Stride Length,Step-to Gait Factors Limiting Gait Function Factors Limiting Limited Range of Motion,Pain Gait Function Comments Gait Comments Min to occasional cues for LLE heel toe, L knee flexion swing through and ankle ROM toe off mobility to normalize gait. Improved step to patterning into more reciprocal gait. GOod stability. Stair Climbing Assessment Evaluation Level of Assist On Standby Assistance Stairs Devices Stair Climbing Straight Cane,Left Railing Assistive Devices Technique/Endurance Stair Climbing Ascend and Descend Direction Stair Climbing Step Over Step Technique Number of Steps 3 Climbed Stair Climbing Set # 1 Repetitions (reps) Comments Stair Climbing Step to proper patterning lead RLE ascend, LLE descend; Comments assimilated lateral L rail (like wall home) and SPC in RUE, good stability. PT-Balance Assessment Sitting Balance and Reactions Static Sitting Normal Balance Ability Dynamic Sitting Normal Balance Ability Standing Balance and Reactions Static Standing Good Balance Ability Dynamic Standing Good Balance Ability Device Used FWW M5 PT-IP Objective Assessments Start: 02/10/25 18:46 Freq: Status: Active Protocol: Document 02/10/25 18:46 NW (Rec: 02/10/25 18:57 NW [id number]) Orientation Orientation/Cognition Level of Alertness Alert Orientation Name,Age,Birthday,Month,Date,Year,Day of Week,Place, Situation Safety Awareness Understands Safety Issues Memory Description No Deficits Noted Gross Range of Motion Upper Extremity ROM Assessment Within Functional Limits Lower Extremity ROM Assessment Left Impaired Impairments secondary post op Strength Upper Extremity Strength Assessment Within Functional Limits Lower Extremity Strength Assessment Left Impaired Hip DNT Knee DNT Coordination Assessment Gross Coordination Gross Coordination WNL Sensation Assessment Sensation Gross Sensation WNL M6 PT-IP Treatment Start: 02/10/25 18:46 Freq: Status: Active Protocol: Document 02/11/25 09:12 SP (Rec: 02/11/25 09:54 SP lillie girard) Physical Therapy Treatment Exercises Exercises Ankle Pumps,Gluteal Sets,Quad Sets,Heel Slides,Seated Knee Flexion/Extension Other Treatments Other Treatment Also instructed standing heel raises x5 reps with FWW Performed support. Reviewed complete HEP 3x/day and walk every hour for safety support circulation, ROM and mobility strength. M7 PT-IP Assessment and Plan Start: 02/10/25 18:46 Freq: Status: Active Protocol: Document 02/11/25 09:12 SP (Rec: 02/11/25 09:54 SP lillie girard) PT Summary Assessment and Plan Potential Rehabilitation Excellent Potential Status of Condition Stable at Evaluation Summary Impairments Pain,ROM,Strength,Balance,Transfers,Gait,Activity Tolerance Progress Towards Progressing Toward Goals Goals Assessment Summary Pt Mod I in all mobility with FWW. SBA during stair mgt 1 HR and SPC assimilation, discussed is capable managing full 14 stair flight when feels up to it. Pt is ok to return home when medically cleared. Pt is set up with outpt therapy in 2 weeks, discussed continue HEP 3x/day and walk hourly until then. Goals Transfer Goal Independent Gait Goal Standby Assistance Gait Distance 100 Other Goals Pt will navigate 2 steps with reduced UE support to mimic getting in and out of the home with no railing support (has a wall on L). Days to Meet Goals 1 Frequency of Treatment Frequency Of Once a Day Treatment Treatment Plan Physical Therapy Transfer Training,Gait Training,Therapeutic Exercise, Treatment Plan Balance Retraining,Post Op Education,Discharge Planning ,Neuromuscular Re-ed Other Progression distance gait, post-op ex, outpt therapy Recommendations and Next Treatment Focus Weight Bearing Status Weight Bearing Weight Bear as Tolerated Status Recommendations To Nursing Amount of Assist Independent,Standby Assistance Needed Discharge Recommendations PT Discharge Home with Assistance,Outpatient PT Recommendations Transportation Needs Private Vehicle at Discharge - PT assist 1
--- NOTE | 2025-02-11 10:00 | PC.NURSE ---
pt has intact CSM to left leg post op knee surgery. dressing remains dry and intact.
--- NOTE | 2025-02-11 11:34 | PC.NURSE ---
[id number] pt has reported that he has had prior knee surgery; pt has reviewed all discharge information; pt and spouse have asked questions; pt has done PT and has demonstarted safe, stable mobility for going home. Used walker and went in and out of restroom well. SL removed with tip intact; spouse gave ride to [employer]; pt with PCT for w/c to care about 1040; pt stable for home. left knee dressing CDI; CSM intact and pt was able to dress himself; RN or spouse tied shoes.
== END 2025-02-11 10:45 | disposition home or self-care (01) ==
LOC: OR 08:44 → AC 13:58
PROVIDERS: PCP Family Medicine; Referring Provider Family Medicine; Visit Provider Orthopaedic Surgery Adult Reconstructive Orthopaedic Surgery
PROC: 0SRD0JZ Replacement of Left Knee Joint with Synthetic Substitute, Open Approach (ICD-10-PCS; CPT 27447; principal; 2025-02-10 11:15)
DX: M17.12 Unilateral primary osteoarthritis, left knee (principal); M25.762 Osteophyte, left knee; I10 Essential (primary) hypertension; I48.0 Paroxysmal atrial fibrillation
CPT/HCPCS: 27447; 73560; 93005; 93010; 97116; 97161; 97530; C1776; C1713; J0689; J1100; J1885; J2405; J2704; J7050; J7120